=== PATIENT | female | born 1995 | race Two or more races ===

== ENCOUNTER → 2024-07-01 | Emergency (ER) | payer OTHER ==
[~2024-07-01] VITALS: Ht 157.5 cm; Wt 45.4 kg
[~2024-07-01] MED LIST: 0.9 % SODIUM CHLORIDE 1,000 ML IV STA; CIPROFLOXACIN IN 5 % DEXTROSE 400 MG/200 ML PIGGYBAG IV ONE; MEPERIDINE HCL/PF 50 MG/ML VIAL IM ONE; METRONIDAZOLE/SODIUM CHLORIDE 500 MG/100 ML PIGGYBACK IV ONE; PANTOPRAZOLE SODIUM 40 MG/VIAL VIAL IV PUSH STA; POTASSIUM CHLORIDE 20MEQ/100ML H2O PB IV ONE; PROMETHAZINE HCL 25 MG/ML AMPUL IM ONE; VITATRUE COMBO1 EACH
[2024-07-01 18:16] LABS: HEMATOCRIT 32.1 % (36.0-45.00); HEMOGLOBIN 10.9 g/dL (12.0-15.00); MEAN CELL VOLUME 94.7 fL (80.00-100.00); MEAN CORPUSCULAR HEMOGLOBIN 32.1 pg (27.00-32.0); MEAN CORPUSCULAR HGB CONC 33.9 g/dl (32.0-36.0); PLATELET COUNT 481 K/uL (150-450); RED BLOOD COUNT 3.39 M/uL (4.00-6.00)
[2024-07-01 18:43] LABS: ALBUMIN 2.8 gm/dL (3.4-5.0); BILIRUBIN TOTAL 0.34 mg/dL (0.3-1.2); CALCIUM 8.8 mg/dL (8.5-10.1); CREATININE SERUM 0.43 mg/dL (0.55-1.02); GFR 174.84; GLOBULINA 4.2 G/DL (2.4-3.5); POTASSIUM 3.48 mEq/L (3.5-5.1)
[2024-07-01 19:33] LABS: URINE APPEARANCE Clear; URINE BILIRRUBIN Negative (NEGATIVE); URINE BLOOD Negative; URINE COLOR Yellow; URINE GLUCOSE Negative (NEGATIVE); URINE LEUKOCYTE Negative; URINE NITRATE Negative; URINE PROTEIN Negative (NEGATIVE); URINE UROBILINOGEN 0.2 E.U./dl
[2024-07-01 19:36] LABS: URINE EPITHELIAL CELLS 74.3 uL (0.0-38.8); URINE RBC 4.2 uL (0.0-20.8); URINE WBC 6.3 uL (0.0-23.2)
[2024-07-01 20:05] LABS: URINE BACTERIA 0 uL (0.0-1933); URINE KETONE 40 (NEGATIVE)
[2024-07-01 20:12] LABS: URINE YEAST MODERATE /hpf
== END | disposition designated cancer center or children's hospital (05) ==
LOC: ER 16:09
PROVIDERS: Emergency Medicine
DX: K35.80 Unspecified acute appendicitis (principal); K56.0 Paralytic ileus; K91.61 Intraoperative hemorrhage and hematoma of a digestive system organ or structure complicating a digestive system procedure; R65.10 Systemic inflammatory response syndrome (SIRS) of non-infectious origin without acute organ dysfunction; R10.9 Unspecified abdominal pain; Z88.0 Allergy status to penicillin
CPT/HCPCS: 36415; 74177; Q9965